=== PATIENT | female | born 1965 | race Caucasian/White ===

== ENCOUNTER 2016-07-17 08:49 | Outpatient (CLI) | payer BC ==
--- NOTE | 2016-07-18 12:58 | DIAGNOSTIC IMAGING REPORT ---
PROCEDURE: MG BILATERAL SCREENING W/CAD INDICATION: SCREENING. Paternal cousin with a history of breast cancer. TECHNIQUE: Bilateral CC and MLO digital views. COMPARISON: Mammograms of 04/15/2011 and 12/25/2006. FINDINGS: Computer-aided detection applied. Dense pattern. Occasional microcalcification. No change. IMPRESSION: 1. Negative mammogram RESULT CODE: 1- Negative. A. A negative report should not delay biopsy if a dominant or clinically suspicious mass is present. 10-15% of cancers are not identified by x-ray. B. A negative report may reinforce clinical impression. C. Adenosis and dense breasts may obscure an underlying neoplasm. D. False positive reports average 6-10%. E.. A yearly screening mammogram is recommended. A reminder letter will be scheduled.
== END 2016-07-17 23:00 ==
LOC: MAM SRH 08:49
DX: Z12.31 Encounter for screening mammogram for malignant neoplasm of breast (principal)